=== PATIENT | male | born 1980 | race Caucasian/White ===

== ENCOUNTER 2016-11-18 12:19 | Emergency (ER) | payer OTHER ==
[~2016-11-18] VITALS: Ht 172.7 cm; Wt 77.1 kg
[~2016-11-18 12:19] MED LIST: DICLOFENAC PO
== END 2016-11-18 14:15 | disposition left against medical advice (07) ==
LOC: CED 12:19 → CFTX 14:10 → CED 14:10 → CFTX 14:15
DX: Z53.21 Procedure and treatment not carried out due to patient leaving prior to being seen by health care provider (principal)